=== PATIENT | female | born 1975 | race Caucasian/White ===

== ENCOUNTER → 2016-09-17 | Outpatient (CLI) | payer SELFPAY ==
--- NOTE | 2016-09-17 14:33 | RADIOLOGY REPORT (SQ) ---
EXAM DESCRIPTION: MRI CERVICAL SPINE WITHOUT COMPLETED DATE/TIME: 09/17/2016 2:15 pm REASON FOR STUDY: CERVICAL RADICULOPATHY (M54.12) M54.12 RADICULOPATHY, CERVICAL REGION COMPARISON: None. TECHNIQUE: Sagittal and Axial imaging includes T1, T2, STIR and gradient echo sequences. LIMITATIONS: None. FINDINGS: ALIGNMENT: There is reversal of the normal cervical lordosis. VERTEBRAE: Intact. BONE MARROW: Normal. No marrow replacement or reactive changes. DISCS: Mild disc space narrowing is present in the lower cervical spine with loss of normal water sig nal throughout the cervical spine. HARDWARE: None in the spine. CORD AND BASE OF BRAIN: Normal in size and signal intensity. SOFT TISSUES: No soft tissue masses. C1-C2: No significant spinal stenosis. C2-C3: No significant spinal stenosis or exit foraminal stenosis. C3-C4: No significant spinal stenosis or exit foraminal stenosis. C4-C5: Mild annular bulging. No central stenosis or nerve root impingement. C5-C6: Mild disc space narrowing. No central stenosis. Neural foramina are patent. C6-C7: There is annular disc bulging. There is osteophytic spurring. No central stenosis. There is mild bilateral foraminal narrowing right greater than left. C7-T1: No significant spinal stenosis or exit foraminal stenosis. UPPER THORACIC: Incompletely imaged. No significant spinal stenosis or exit foraminal stenosis. OTHER: No other significant finding. IMPRESSION: 1. Mild multilevel spondylosis with reversal of the normal cervical lordosis. 2. Annular disc bulging at C6-C7 with mild bilateral foraminal narrowing right greater than left. TECHNICAL DOCUMENTATION: JOB ID: [id number] All Rights Reserved
== END ==
LOC: RAD 13:01
PROVIDERS: ATTEND Specialist
DX: M54.12 Radiculopathy, cervical region (principal)
CPT/HCPCS: 72141